=== PATIENT | female | born 1960 | race Asian ===

== ENCOUNTER 2021-07-28 12:21 | Outpatient (CLI) | payer BC, SELFPAY ==
--- NOTE | ~2021-07-28 | XR_ITS ---
XR shoulder LT min 2V DATE: 07/28/2021 12:48 INDICATION: Left shoulder pain for 3 days. No known injury. TECHNIQUE: 4 views COMPARISON: None FINDINGS: There is a left cervical rib. There is levoscoliosis and degenerative spurring of the upper thoracic spine. Diffuse osteopenia. There is mild degenerative change at the left acromioclavicular joint. No fracture, dislocation, periosteal reaction or bone destruction of the left shoulder is detected. There is soft tissue calcification near the insertion of the rotator cuff at the greater tuberosity, consistent with calcific tendinitis of the rotator cuff. IMPRESSION: Left cervical rib Mild degenerative change at left acromioclavicular joint Mild calcification near the rotator cuff insertion, suggesting calcific tendinitis of the rotator cuf f Reviewed, dictated and finalized at location B. IMPRESSION: Left cervical rib Mild degenerative change at left acromioclavicular joint Mild calcification near the rotator cuff insertion, suggesting calcific tendini tis of the rotator cuff
== END 2021-07-28 12:22 | disposition home or self-care (01) ==
LOC: CHSIMG 12:26
PROVIDERS: PCP Family Medicine; Visit Provider Family Medicine
DX: M25.512 Pain in left shoulder (principal)
CPT/HCPCS: 73030

== ENCOUNTER 2021-07-30 08:46 | Outpatient (CLI) | payer BC, SELFPAY ==
--- NOTE | ~2021-07-30 | MM_ITS ---
EXAMINATION: MM screening fidelia BI w viji HISTORY: Screening TECHNIQUE: Craniocaudal and mediolateral oblique 3-D tomosynthesis images were obtained and synthetic 2-D images were generated. CAD analysis was submitted and interpreted. COMPARISON: No prior mammogram is available for comparison at this institution. BREAST PARENCHYMAL COMPOSITION: There are scattered areas of fibroglandular density. FINDINGS: There are no suspicious masses, calcifications or architectural distortion in the left emmanuelle st to suggest malignancy. There is a focal mass in the upper outer quadrant of the right breast. Ther e is a second smaller mass superiorly in the right breast on MLO view overlying the pectoralis muscle . IMPRESSION: 1. Right breast masses 2. Additional mammographic views and possible breast ultrasound are recommended. BI-RADS Category 0: Incomplete: Needs additional imaging evaluation. Reviewed, dictated and finalized at location A. IMPRESSION: 1. Right breast masses 2. Additional mammographic views and possible breast ultrasound are recommended . BI-RADS Category 0: Incomplete: Needs additional imaging evaluation.
== END 2021-07-30 08:47 | disposition home or self-care (01) ==
PROVIDERS: PCP Family Medicine; Visit Provider Family Medicine
DX: Z12.31 Encounter for screening mammogram for malignant neoplasm of breast (principal)
CPT/HCPCS: 77063; 77067

== ENCOUNTER 2021-08-12 08:46 | Outpatient (CLI) | payer BC, SELFPAY ==
--- NOTE | ~2021-08-12 | MMUS_ITS ---
EXAMINATION: MM diagnostic fidelia RT w viji, US breast RT limited HISTORY: Right breast masses reported on 07/30/2021 screening mammogram TECHNIQUE: Additional 3-D tomosynthesis images of were performed and synthetic 2-D images were genera kylie. CAD analysis was submitted and interpreted. High resolution targeted posterior 8-10:00 [address] sean [address] ultrasound was performed. COMPARISON: 07/30/2021 bilateral screening mammogram FINDINGS: MAMMOGRAPHIC FINDINGS: Circumscribed approximately 4 x 5.2 mm opacity is noted in the very posterior aspect of the outer mid right breast. Sonographic correlation was obtained. Small circumscribed opacities in the axillary tail area are most consistent with benign process, like ly benign lymph nodes. Multiple benign-appearing axillary lymph nodes are again present. ULTRASOUND: There is a 6.2 x 2.9 x 5.7 mm circumscribed sonolucent or hypoechoic lesion without internal vascular ity or suspicious shadowing at 9:00 7 cm from the nipple, which likely corresponds to the mammographi c finding. IMPRESSION: 1. Probable benign finding in posterior mid outer right breast at 9:00 7 cm from nipple 2. 6 month diagnostic right mammogram and targeted right breast ultrasound follow-up are recommended BI-RADS category 3, probably benign findings. Reviewed, dictated and finalized at location A. IMPRESSION: 1. Probable benign finding in posterior mid outer right breast at 9:00 7 cm fro m nipple 2. 6 month diagnostic right mammogram and targeted right breast ultrasound foll ow-up are recommended BI-RADS category 3, probably benign findings.
== END 2021-08-12 08:47 | disposition home or self-care (01) ==
LOC: CHSIMG 08:50
PROVIDERS: PCP Family Medicine; Visit Provider Registered Nurse
DX: N63.15 Unspecified lump in the right breast, overlapping quadrants (principal)
CPT/HCPCS: 76642; 77061; 77065; G0279

== ENCOUNTER 2021-11-22 16:15 | Emergency (ER) | payer BC, SELFPAY ==
--- NOTE | ~2021-11-22 | CT_ITS ---
EXAMINATION: CT brain wo con DATE: 11/22/2021 16:53 INDICATION: FALL. HEAD INJURY. PAIN ANTERIOR/RIGHT SIDE. . TECHNIQUE: Computed tomography (CT) of the head was performed without intravenous contrast. The mA wa s adjusted according to patient size. Iterative reconstruction technique was employed. The dose-lengt h product was 605.33 mGy-cm. COMPARISON: None FINDINGS: No acute intracranial hemorrhage or extra-axial fluid collection. No hydrocephalus, mass, or herniation. No acute ischemic infarct. Unremarkable dural venous sinus attenuation. No acute osseous abnormality. Air-fluid level in left maxillary sinus, otherwise the aerated spaces are clear. Atherosclerotic intracranial calcification. IMPRESSION: No acute intracranial process. Left maxillary air-fluid level may reflect acute sinusitis or mucosal hemorrhage. Reviewed, dictated and finalized at location K.
--- NOTE | ~2021-11-22 | CT_ITS ---
EXAMINATION: CT facial & cervical spine wo DATE: 11/22/2021 16:56 INDICATION: FALL. NECK PAIN. PAIN/SWELLING TO NOSE. TECHNIQUE: Computed tomography (CT) of the maxillofacial region and cervical spine was performed with out intravenous contrast. Automated exposure control and iterative reconstruction technique were empl oyed. The dose-length product was 440.40 mGy-cm. COMPARISON: None FINDINGS: CERVICAL: Vertebral Body Alignment: Intact. Craniocervical and atlantoaxial alignment: Moderate degenerative change. Alignment intact. Osseous structures/fracture: No evidence of a lytic or blastic process in the visualized spine. No e vidence of acute fracture. Cervical soft tissues: The paraspinal soft tissues planes are maintained. Degenerative changes: No significant degenerative changes. FACE: Soft Tissues: Frontal soft tissue swelling. Facial bones: Mild irregularity of the nasal bones, with slight depression which can be seen with ac [place] or chronic injury. Otherwise no acute fracture. No lytic or blastic process. Eyes: The globes are intact. The soft tissue planes of the orbits are maintained. Paranasal Sinuses: Air-fluid level in left maxillary sinus. Foreign Bodies: No radiopaque foreign bodies. Other Findings: None. IMPRESSION: No acute fracture or traumatic malalignment in the cervical spine. Possible mildly depressed bilatera l nasal bone fractures, correlate with pain/tenderness. Otherwise, no acute facial bone fracture. Lef t maxillary findings may reflect acute sinusitis or mucosal hemorrhage. Reviewed, dictated and finalized at location K. IMPRESSION: No acute fracture or traumatic malalignment in the cervical spine. Possible mil dly depressed bilateral nasal bone fractures, correlate with pain/tenderness. O therwise, no acute facial bone fracture. Left maxillary findings may reflect ac [place] sinusitis or mucosal hemorrhage.
--- NOTE | 2021-11-22 16:19 | ED.FALL ---
HPI - Fall General Chief Complaint: Fall Stated Complaint: fell down Time Seen by Provider: 11/22/21 16:18 Source: patient Mode of arrival: ambulatory History of Present Illness HPI Narrative: 61-year-old female with hypertension, hypothyroidism, fibromyalgia, presents to the ER after she tripped and fell on head with -- forehead hematoma with headache. no loss of consciousness -- abrasion over the nose with epistaxis -- left shoulder pain. patient thinks that she is up-to-date on tetanus. complaint: fall Onset (ago): minute(s) ( Fell 30 minutes ago) Fall from: standing Fall witnessed: yes, by family Place fall occurred: street Loss of consciousness: none Context: tripped/slipped Location of injury - extremities: Left: shoulder Related Data Home Medications Medication Instructions Recorded Confirmed escitalopram oxalate 20 mg tablet 20 mg PO DAILY 11/22/21 11/22/21 isosorbide mononitrate 30 mg 30 mg PO DAILY 11/22/21 11/22/21 tablet,extended release 24 hr levothyroxine 100 mcg tablet 100 mcg PO DAILY 11/22/21 11/22/21 lisinopril 2.5 mg tablet 2.5 mg PO DAILY 11/22/21 11/22/21 metoprolol succinate 100 mg 100 mg PO BID 11/22/21 11/22/21 tablet,extended release 24 hr naproxen 500 mg tablet 500 mg PO BID 11/22/21 11/22/21 spironolactone 25 mg tablet 25 mg PO DAILY 11/22/21 11/22/21 trazodone 150 mg tablet 150 mg PO DAILY 11/22/21 11/22/21 Allergies Allergy/AdvReac Type Severity Reaction Status Date / Time clarithromycin Allergy Anaphylaxis Verified 11/22/21 16:39 Penicillins Allergy Anaphylaxis Verified 11/22/21 16:39 Review of Systems Review of Systems: All systems reviewed & are unremarkable except as noted in HPI and below Constitutional: Constitutional: Reports as per HPI and Reports no additional constitutional complaints Eyes: Eyes: Reports as per HPI and Reports no additional eye complaints ENT: Reports system reviewed and no additional complaints, except as documented and Reports epistaxis Cardiovascular: Cardiovascular: Reports as per HPI and Reports no additional cardiovascular complaints Respiratory: Respiratory: Reports as per HPI and Reports no additional respiratory complaints Gastrointestinal: Gastrointestinal: Reports as per HPI and Reports no additional gastrointestinal complaints Genitourinary: Genitourinary: Reports no additional female genitourinary complaints and Reports as per HPI Musculoskeletal: Musculoskeletal: Reports no additional musculoskeletal complaints and Reports as per HPI Comments: no neck or Worsening of her chronic back pain. left shoulder pain Integumentary/Breasts: Skin/Breast: Reports system reviewed and no additional complaints, except as docu Comments: nasal and forehead abrasion Neurologic: Reports system reviewed and no additional complaints, except as documented and Reports as per HPI Psychiatric: Psychiatric: Reports no additional psychiatric complaints and Reports as per HPI Endocrine: Endocrine: Reports no additional endocrine complaints Hematologic/Lymphatic: Hematologic/Lymphatic: Reports no additional hematologic/lymphatic complaints and Reports as per HPI Allergic/Immunologic: Allergic/Immunologic: Reports no additional allergic/immunologic complaints and Reports as per HPI PMFSH Past Medical History Medical History (Updated 11/22/21 @ 18:31 by Jordan Flores MD) Fibromyalgia Hypertension Hypothyroidism Exam Const: General: no acute distress Nutritional Appearance: well nourished Orientation/consciousness: patient oriented x3 Limitations: no limitations HENMT: Head: normal to inspection Head images: 1. forehead hematoma measuring 2X3 cm 2. nasal bridge abrasion. no deformity of nose Ears: external ears normal General nose exam: Normal external nose present ( abrasion over nasal bridge. Epistaxis.) and Epistaxis present Mouth: Yes Normal oral and palatal mucosa present Throat: posterior oropharynx breezy
[2021-11-22 16:25] VITALS: BP 143/60; PULSE 82; RESP 16; TEMP 36.6; O2SAT 97
[2021-11-22] MEDS: Please add drug allergy info to patient profile. XX (16:56)
[2021-11-22] MEDS: HYDROmorphone HCL INJ (*CRX) 2 MG/ML VIAL 0.5 MG IM (16:57)
[2021-11-22] MEDS: ONDANSETRON HCL ODT 4 MG TABLET PO (16:57)
[2021-11-22 18:32] VITALS: BP 106/89; PULSE 70; RESP 16; TEMP 36.7; O2SAT 99
== END 2021-11-22 18:40 | disposition home or self-care (01) ==
PROVIDERS: Emergency Provider Internal Medicine Critical Care Medicine; PCP Family Medicine
DX: S02.2XXA Fracture of nasal bones, initial encounter for closed fracture (principal); S09.90XA Unspecified injury of head, initial encounter; W01.0XXA Fall on same level from slipping, tripping and stumbling without subsequent striking against object, initial encounter
CPT/HCPCS: 70450; 70486; 72125; 96372; 99284; A9270; J1170

== ENCOUNTER 2022-02-19 08:40 | Outpatient (CLI) | payer BC, SELFPAY ==
--- NOTE | ~2022-02-19 | MMUS_ITS ---
EXAMINATION: MM diagnostic fidelia RT w viji, US breast RT limited HISTORY: Six-month follow-up for probably benign right breast mass TECHNIQUE: Craniocaudal, mediolateral, and mediolateral oblique 3-D tomosynthesis images of the right breast were performed and synthetic 2-D images were generated. CAD analysis was submitted and interp reted. High resolution limited right breast ultrasound was performed. COMPARISON: 08/12/2021, 07/30/2021 BREAST PARENCHYMAL COMPOSITION: There are scattered areas of fibroglandular density. FINDINGS: MAMMOGRAPHIC FINDINGS: There is a stable 5 mm bilateral or mass in the posterior third of the upper outer quadrant of the br east at the 10:00 location 9 cm from the nipple with a central fatty component. No suspicious calcifi cation or architectural distortion are identified. ULTRASOUND: There is a 5 mm mass at the 10:00 location 8 cm from the nipple with sonographic features consistent with an intramammary lymph node. No suspicious interval change is identified. IMPRESSION: 1. No mammographic or sonographic evidence of malignancy. 2. Routine screening mammography is recommended. BI-RADS Category 2: Benign finding(s). Reviewed, dictated and finalized at location A. HOUSE EXAMINER IMPRESSION: 1. No mammographic or sonographic evidence of malignancy. 2. Routine screening mammography is recommended. BI-RADS Category 2: Benign finding(s).
== END 2022-02-19 08:41 | disposition home or self-care (01) ==
LOC: CHSIMG 08:43
PROVIDERS: PCP Family Medicine; Visit Provider Registered Nurse
DX: R92.8 Other abnormal and inconclusive findings on diagnostic imaging of breast (principal)
CPT/HCPCS: 76642; 77061; 77065; G0279

== ENCOUNTER 2023-07-29 13:03 | Outpatient (CLI) | payer OTHER, SELFPAY ==
--- NOTE | ~2023-07-29 | DEXA_ITS ---
? Bone Density Report? Name:? ROGERS RAWLS Patient ID:??? [id number] Age:? 63 Sex:? Female Ethnicity:? White Date of : 1960 Indication: hyperparathyroidism; height loss; Referring Provider: ARJUN, MIKIE Study: Bone densitometry was performed. Exam Date: July 29, 2023 Accession number: [id number] Bone Density: Region? BMD??? T-score? Z-score?? Classification AP Spine(L1-L4)? 0.899?? -1.3?0.4? Osteopenia Femoral Neck (Left)? 0.765?? -0.8? 0.7? Normal Total Hip (Left)? 0.961??? 0.2? 1.3? Normal Femoral Neck (Right)? 0.803?? -0.4? 1.1? Normal Total Hip (Right)? 0.943??? 0.0? 1.2? Normal Femoral Neck Mean? 0.784?? -0.6? 0.9? Normal Total Hip Mean? 0.952??? 0.1? 1.3? Normal World Health Organization criteria for BMD impression classify patients as: Normal (T-score at or above -1.0), Osteopenia (T-score between -1.0 and -2.5), or Osteoporosis (T-score at or below -2.5). 10-year Fracture Risk(1): Major Osteoporotic Fracture? 6.7% Hip Fracture? 0.3% Reported Risk Factors: [place] (), Neck BMD=0.765, BMI=41.2 (1) FRAX? Version 3.08. Fracture probability calculated for an untreated patient. Fracture probability may be lower if the patient has received treatment. Clinical Information Provided by Patient: Has the following medical conditions: Hyperparathyroidism Patient maximum height was 63 Menopause Age: 49 Drinks caffeinated beverages Onset of menses at age 11 Number of children 2 Missed period for more than 6 months in a row Impression: The patient has low bone mass, based on the Total Spine T-score. Discussion: BONE DENSITY IS LOW AT ONE OR MORE SKELETAL SITES. This patient's lowest T-score is low at one or more skeletal sites.? It meets the World Health Organization's (WHO) criteria for ?low bone mass?? (T-score between -1.0 and -2.5).? The patient's 10-year risk of fracture as calculated by FRAX is less than the threshold where pharmacological therapy is recommended by the National Osteoporosis Foundation (NOF).? However, all treatment decisions require clinical judgment and consideration of individual patient factors, including patient preferences, comorbidities, previous drug use, risk factors not captured in the FRAX model (e.g., frailty, falls, vitamin D deficiency, increased bone turnover, interval significant decline in bone density) and possible under or overestimation of fracture risk by FRAX. The patient should follow a healthful lifestyle (good nutrition with adequate calcium and vitamin D, and appropriate weight-bearing exercise). Follow-Up: Consider repeating this study in 2 to 3 years to reassess this patient's status, or sooner if there is some new clinical indication. Reported by: Dr. David Bailey on 42:22:00 PM. RUBIO
--- NOTE | ~2023-07-29 | MM_ITS ---
EXAMINATION: MM screening fidelia BI w viji HISTORY: Screening mammogram TECHNIQUE: Craniocaudal and mediolateral oblique 3-D tomosynthesis images were obtained and synthetic 2-D images were generated. CAD analysis was submitted and interpreted. COMPARISON: 02/19/2022 diagnostic right mammogram and Limited right breast ultrasound 07/23/2021 diagnostic right mammogram and Limited right breast ultrasound 07/30/2021 bilateral screening mammogram BREAST PARENCHYMAL COMPOSITION: There are scattered areas of fibroglandular density. FINDINGS: There is no evidence of suspicious mass, calcification, or architectural distortion to sugg est malignancy in either breast. There has been no suspicious interval change. IMPRESSION: 1. No mammographic evidence of malignancy. 2. Recommend routine screening mammography in one year. BI-RADS Category 1: Negative Reviewed, dictated and finalized at location B.
== END 2023-07-29 13:04 | disposition home or self-care (01) ==
LOC: CHSIMG 13:07
PROVIDERS: PCP Family Medicine; Visit Provider Registered Nurse
DX: Z12.31 Encounter for screening mammogram for malignant neoplasm of breast (principal); Z78.0 Asymptomatic menopausal state; M85.88 Other specified disorders of bone density and structure, other site
CPT/HCPCS: 77063; 77067; 77080